=== PATIENT | female | born 1960 | race Caucasian/White ===

== ENCOUNTER 2017-07-18 18:40 | Inpatient (IN) | payer MEDICARE ==
[~2017-07-18] VITALS: Ht 154.9 cm; Wt 75.7 kg
--- NOTE | ~2017-07-18 | HP ---
PATIENT'S NAME: KONRAD BORJAS [facility] AGE: 56 Y [address] ROOM: [place] [id number] LOCATION: [facility] ADMIT DATE: 07/18/2017 History & Physical DISCHARGE DATE: FAMILY PHYSICIAN: PHYSICIAN, UNKNOWN ATTENDING PHYSICIAN: COLBY BUSTILLO DATE OF SERVICE: ADDENDUM: PHYSICAL EXAMINATION: VITAL SIGNS: All the vitals were reviewed and were unremarkable. GENERAL: No acute distress. Alert and oriented x3. HEAD: Atraumatic, normocephalic. EYES: Nonicteric. No pallor. OROPHARYNX: Moist mucous membranes. CARDIOVASCULAR: S1, S2. No murmurs, gallops, or rubs. LUNGS: Clear to auscultation bilaterally. ABDOMEN: Soft, nontender, and nondistended. Bowel sounds present. EXTREMITIES: No clubbing, cyanosis, or edema. MUSCULOSKELETAL: Multiple joint deformities noted. SKIN: Right wrist dorsal site wound noted which has been there chronically. Some purulence noted. ENDOCRINE: No thyromegaly or myxedema noted. LYMPHATICS: No lymphangitis or lymphadenopathy noted. LABORATORY DATA: The lab work from outside facility was reviewed and was impressive for potassium of 3.5. ASSESSMENT: 1. Rheumatoid arthritis. 2. Chronic right hand surgical wound infection. 3. Narcotic dependence. 4. Chronic use of steroids. 5. Acute L3 fracture. PLAN: We are going to admit this lady, monitor her overnight. There were some concerns for compression given her numbness as well as incontinence. Per Dr. Mendez's advice, we got an MRI overnight which did not reveal any cord compression. Dr. Day to see the patient in the morning from Orthopedics. We will continue all her home medications for now. N.p.o. at midnight. PATIENT'S NAME: KONRAD BORJAS [facility] AGE: 56 Y [address] ROOM: [id number] [place] [id number] LOCATION: [facility] ADMIT DATE: 07/18/2017 History & Physical DISCHARGE DATE: FAMILY PHYSICIAN: PHYSICIAN, UNKNOWN ATTENDING PHYSICIAN: COLBY BUSTILLO MD PHONG HENDRICKS/modl /[id number] D: T: [id number] HISTORY & PHYSICAL
--- NOTE | ~2017-07-18 | CON ---
PATIENT'S NAME: KONRAD BORJAS [facility] AGE: 56 Y [address] ROOM: [id number] [place], [place] [address] LOCATION: [facility] ADMIT DATE: 07/18/2017 Consultation DISCHARGE DATE: FAMILY PHYSICIAN: PHYSICIAN, UNKNOWN ATTENDING PHYSICIAN: COLBY BUSTILLO DATE OF CONSULTATION: 07/19/2017 REFERRING PHYSICIAN: Ronal Alberto MD TIME: 7:30 a.m. HISTORY OF PRESENT ILLNESS: Ms. Borjas is a 56-year-old white female with a long history of rheumatoid arthritis, on steroids. Known to have severe osteoporosis. Also, on chronic narcotics for pain. She has had one week of new pain in the back. Found to have a lumbar 3 burst fracture. Prior to the onset of back symptoms, was having fractures of the pelvis and the sacrum. Those symptoms began in April. She had been in a detention and was slowly mobilizing. After the onset of the pelvic symptoms, was having some difficulty of urination, but no weakness in the lower extremities. No new changes in bowel or bladder function related to the onset of back symptoms. Not known to have cancer. Does have a chronic infection of the right hand after attempted surgery. PAST MEDICAL HISTORY: Rheumatoid arthritis, on steroids. Chronic pain, on narcotics. Also, has hypertension. Known to have severe osteoporosis. Does not smoke. Does not drink alcohol. Does not abuse drugs. MEDICATIONS: See list, which includes steroids. ALLERGIES: MORPHINE AND SULFA. 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 FAMILY MEDICAL HISTORY: Positive for rheumatoid arthritis. PERSONAL AND SOCIAL HISTORY: She has been in a detention, but would like to eventually return to home. PHYSICAL EXAMINATION: PATIENT'S NAME: KONRAD BORJAS [facility] AGE: 56 Y [address] ROOM: [id number] [place], [place] [address] LOCATION: [facility] ADMIT DATE: 07/18/2017 Consultation DISCHARGE DATE: FAMILY PHYSICIAN: PHYSICIAN, UNKNOWN ATTENDING PHYSICIAN: COLBY BUSTILLO GENERAL: A white female, in minimal distress. HEENT: No vision on the left, can see on the right. Hears. Cushingoid appearance to the facies. NECK: Nontender. Moves without pain. BACK: Lumbosacral spine is tender. Thoracic Spine: No deformity, nontender. Pelvis: Tender over the sacrum. NEUROLOGIC: Feels sensation in the torso and both lower extremities. Moves legs with full strength. Normal tone. Distal pulses palpable. HEART: Pulse rate is regular. LUNGS: Able to take in a deep breath. ABDOMEN: Soft and nontender. LABORATORY AND DIAGNOSTIC DATA: CT scan of the low back shows a L3 burst fracture with minimal retropulsion and minimal loss of height. There is also fracture of bilateral sacral ala and a transverse fracture through the body of sacral 2. MRI of the lumbosacral spine shows no significant stenosis with the burst fracture. Also, no evidence of diskitis, other infection, or metastatic tumor. Laboratories: Serum protein electrophoresis is pending. Sedimentation rate is 22. C-reactive protein is less than 0.29. UA: Unremarkable. Blood Count: White blood count 7.8, hemoglobin is 12.1. ASSESSMENT AND PLAN: An unfortunate lady with severe rheumatoid arthritis requiring steroids, and osteoporosis. She has a pathologic fracture of lumbar 3 that is acute. Treatment is conservative, mobilizing in a TLSO. Not a candidate for vertebral body augmentation. Also, has fractures of the sacrum which is part of the spine and also the right ilium. We will plan to mobilize in the TLSO as tolerates. Urinary symptoms most likely from the previous sacral fracture. I would not recommend any other treatment at this time. Certainly, she is osteoporotic, on steroids, and likely to have additional fractures in the future. Avoiding falls is important. RONAL ALBERTO MD DPM/larry /[id number] d: 07/20/17 1423 t: 07/22/17 1735, CONSULTATION REPORT
--- NOTE | ~2017-07-18 | HP ---
PATIENT'S NAME: [facility]AD [facility] AGE: 56 Y [address] ROOM: [place] [address] LOCATION: [facility] ADMIT DATE: 07/18/2017 History & Physical DISCHARGE DATE: FAMILY PHYSICIAN: PHYSICIAN, UNKNOWN ATTENDING PHYSICIAN: COLBY BUSTILLO DATE OF SERVICE: CHIEF COMPLAINT: Back pain. HISTORY OF PRESENT ILLNESS: A 56-year-old lady with a lifelong rheumatoid arthritis started since she was age of 14, opioid dependence, and hypertension, who presented to the emergency department over at [facility] with acute onset of back pain, which started actually Friday without any traumatic event, progressive in nature, sharp in character, present all the time, aggravated by movement, radiates to the both legs as well, associated with numbness as well as urinary incontinence, but no saddle anesthesia reported. Further inquiry also reviewed that she had a surgery on her right wrist for joint repair, which has not been successful and has been chronically infected and has been taken care by the Infectious Disease people. She did not report any chest pain, any shortness of breath, any cough or sputum production, headache, dizziness, abdominal pain, or burning on urination. REVIEW OF SYSTEMS: All other systems reviewed and were negative except what is mentioned in the HPI. ALLERGIES: THE PATIENT DID HAVE ADVERSE REACTION TO MORPHINE AND SULFA. PAST MEDICAL HISTORY: Rheumatoid arthritis, surgery of the hand which is chronically infected right side. Hypertension and chronic narcotic dependence. MEDICATIONS: Being reconciled right now. FAMILY HISTORY: Family history is strongly positive for rheumatoid arthritis on the mother side. SOCIAL HISTORY: Never a smoker. No alcohol or drug abuse. PATIENT'S NAME: KONRAD BORJAS [facility] AGE: 56 Y [address] [id number] [id number] LOCATION: [facility] ADMIT DATE: 07/18/2017 History & Physical DISCHARGE DATE: FAMILY PHYSICIAN: PHYSICIAN, UNKNOWN ATTENDING PHYSICIAN: COLBY BUSTILLO DICTATION ENDS HERE MD PHONG HENDRICKS/larry /[id number] D: T: [id number] HISTORY & PHYSICAL
--- NOTE | ~2017-07-18 | DS ---
PATIENT'S NAME: KONRAD BORJAS [facility] AGE: 56 Y [address] ROOM: [id number] [place], [place] [address] LOCATION: [facility] ADMIT DATE: 07/18/2017 Discharge Summary DISCHARGE DATE: 07/22/2017 FAMILY PHYSICIAN: Physician, Unknown ATTENDING PHYSICIAN: Prakash Vargas PRINCIPAL DIAGNOSES: 1. L3 burst fracture with S2 sacral fracture. 2. [id number] pain. 3. Severe rheumatoid arthritis, on chronic steroid therapy. 4. Chronic constipation. 5. Physical deconditioning. 6. Essential hypertension. 7. Chronic obstructive pulmonary disease. 8. Chronic right hand infection. 9. History of a corneal transplant. HOSPITAL COURSE: Please reference any admitting data to the history and physical as dictated by admitting physician, Dr. Kwabena Guerrier. Ms. Borjas is a 56-year-old female, who comes with a known lumbar 3 fracture with sensory deficit. She was admitted under the Intensive Care and evaluated in consultation with our orthopedic surgeon, Dr. Day. Imaging revealed no cord compression and did confirm a burst fracture at L3 vertebral body with mild compression deformity. There was also noted posterior bone displacement at L3. A fracture at the superior endplate S2 with impaction and slight bone displacement and right and left-sided sacral insufficiency fractures were noted. On exam, she could feel both legs having positive sensory and motor skills. She was placed in a TLSO brace and started on physical therapy. She was also started on DVT prophylaxis, Lovenox. AP lateral views of the lumbar spine were used for a comparison, which showed stable and normal alignment. We went ahead and continued pain management with her current home medicines, which adequately controlled her pain. She was able to stand and move some, however, not well enough to return to home safely, so Care Management consultation was obtained for custodial placement. While this was being arranged, the patient did receive physical therapy and did make little progress. Pain was adequately controlled. We did evaluate worsening of her left hip pain by x-ray, which did not show any new or acute abnormalities. She also experienced abdominal discomfort and a KUB abdomen showed considerable constipation, so started on an aggressive bowel regimen, which relieved this. The brace did not appear to be fitted well either, which could have been contributing factors, so this was refitted with [employer] and custom fit for her on day of discharge. She did also come to us with a Askew catheter for some retention and this was PATIENT'S NAME: KONRAD BORJAS [facility] AGE: 56 Y [address] ROOM: [id number] [place], [place] [address] LOCATION: [facility] ADMIT DATE: 07/18/2017 Discharge Summary DISCHARGE DATE: 07/22/2017 FAMILY PHYSICIAN: Physician, Unknown ATTENDING PHYSICIAN: Prakash Vargas removed at the time of discharge. RADIOLOGIC IMAGING: As described above. CONSULTING PROVIDERS: Ronal Day MD, Orthopedic Spine. LABORATORY FINDINGS: CBC on 07/21 showed a white blood cell count of 8.9, hemoglobin of 12.4, hematocrit of 37.2, and a platelet count of 322. Chemistry panel showed a glucose 89, BUN 10, creatinine 0.7, sodium 142, potassium 3.7, chloride 109, CO2 of 23, calcium 8.7, AST was 34, ALT of 30, alk phos was 214, and total bilirubin of 0.4. LDH was 250. Sedimentation rate was 22. CRP was less than 0.29. TSH was 0.252. Urinalysis was positive for 25 leukocytes, negative nitrites, 30 protein. Microanalysis showed 25 blood, 5-10 white blood cells, few bacteria. A culture was not obtained in the lab. The patient stated she was asymptomatic. DISCHARGE MEDICATIONS: 1. Doxycycline 50 mg p.o. everyday. 2. Cymbalta 60 mg p.o. everyday. 3. Lovenox 40 mg subcutaneous everyday. 4. Plaquenil 200 mg p.o. everyday. 5. Ibuprofen 800 mg p.o. 3 times daily as needed. 6. Cozaar 50 mg p.o. everyday. 7. Methadone one tablet p.o. four times daily. 8. Hydrocodone/acetaminophen 10/325 mg 1-2 tablets p.o. every 6 hours as needed. 9. Metoclopramide 5 mg p.o. four times daily. 10. Singulair 10 mg p.o. every night at bedtime. 11. Potassium chloride 20 mEq p.o. twice daily. 12. Prednisone 5 mg p.o. everyday. 13. Lyrica 150 mg p.o. twice daily. 14. Zanaflex 4 mg p.o. three times daily. 15. Breo Ellipta 200/25 mcg 2 puffs inhalation everyday. 16. Albuterol/ProAir one puff every 2 hours as needed for shortness of breath or wheezing. 17. Dexilant 60 mg one capsule p.o. everyday. 18. Vitamin D2 81913 units one capsule p.o. twice a week. 19. Lunesta one tablet p.o. every night at bedtime as needed. 20. Valtrex 1 g p.o. everyday. 21. Colace 100 mg p.o. twice daily. 22. MiraLax 17 g p.o. everyday schedule. 23. Dulcolax suppository one per rectum daily as needed for constipation. 24. Durezol eyedrops one drop to left eye everyday. PATIENT'S NAME: KONRAD BORJAS [facility] AGE: 56 Y [address] ROOM: [place] [address] LOCATION: [facility] ADMIT DATE: 07/18/2017 Discharge Summary DISCHARGE DATE: 07/22/2017 FAMILY PHYSICIAN: Physician, Unknown ATTENDING PHYSICIAN: Prakash Vargas DISCHARGE INSTRUCTIONS: 1. The patient will be transferred to [facility] under the care of her primary care doctor, Dr. Jair Fitzgerald, who she will need to require follow up in the next 1-2 weeks with. At that followup, she should obtain a CBC and a BMP for further evaluation. 2. Diet should remain regular. 3. Weightbearing is as tolerated with occupational and physical therapy to evaluate and treat the patient as indicated and the TLSO should be on. The patient when out of bed. 4. Wound care to the right hand wounds with Allevyn foam dressing to be changed on Mondays and . She should continue her doxycycline as prescribed by her primary care doctor and Infectious Disease with appropriate followup as previously scheduled with them. 5. As significant as her osteoporosis is, we recommend that she continue her osteoporotic treatment as an outpatient with her primary care provider. May consider Forteo as an option but to be further discussed as an outpatient. 6. Rehab potential is fair. Discharge potential is fair. The patient is well aware of her condition and prognosis and above line of management was discussed with her in depth prior to discharge. She stated complete understanding of all the above as well as all of her questions were answered with statements of satisfaction. Total time arranging greater than 30 minutes. ADDENDUM: Dr. Day requests follow up with him on August 25, 2017 at 1:00 p.m. with an x-ray at [facility] that day at noon of the standing lumbar spine in her TLSO AP and lateral view as well as her pelvis and sacrum. These appointments were established before her discharge. Thank you for allowing us to participate in the care of this patient while at [facility]. MAICO I MICHELLE RIGGS APRN FOR MD LIDA PERRY/modl /[id number] CC: MD Jair Gil MD d: t: 07/23/17 1306, DISCHARGE SUMMARY
[2017-07-18] MEDS ORDERED: BREO ELLIPTA 21 EACH INH (21:38)
[2017-07-18] MEDS ORDERED: CYMBALTA60 MG PO (21:39)
[2017-07-18] MEDS ORDERED: DEXILANT60 MG PO (21:41)
[2017-07-18] MEDS ORDERED: DOXYCYCLINE100 MG PO (21:43)
[2017-07-18] MEDS ORDERED: VITAMIN D250000 UNIT PO (21:44)
[2017-07-18] MEDS ORDERED: PLAQUENIL200 MG PO (21:44)
[2017-07-18] MEDS ORDERED: IBUPROFEN800 MG PO (21:45)
[2017-07-18] MEDS ORDERED: COZAAR50 MG PO (21:45)
[2017-07-18] MEDS ORDERED: LUNESTA3 MG PO (21:46)
[2017-07-18] MEDS ORDERED: DOLOPHINE10 MG PO (21:47)
[2017-07-18] MEDS ORDERED: METOCLOPRAMIDE H5 MG PO (21:48)
[2017-07-18] MEDS ORDERED: NORCO 10-325 T1 EACH PO (21:49)
[2017-07-18] MEDS ORDERED: KCL - MICRO-K10 MEQ PO (21:50)
[2017-07-18] MEDS ORDERED: DELTASONE5 MG PO (21:52)
[2017-07-18] MEDS ORDERED: PROAIR HFA8.5 GM (21:55)
[2017-07-18] MEDS ORDERED: SINGULAIR10 MG PO (21:55)
[2017-07-18] MEDS ORDERED: ZANAFLEX4 MG PO (21:56)
[2017-07-18] MEDS ORDERED: VALTREX1000 MG PO (21:56)
[2017-07-18] MEDS ORDERED: LYRICA 150MG C150 MG PO (22:05)
[2017-07-18 22:21] LABS: BASOPHIL % 0.5 %; EOSINOPHIL % 0.5 %; HEMATOCRIT 35.4 % (33.0-46.0); HEMOGLOBIN 12.1 g/dL (10.0-15.0); IMMATURE GRANULOCYTE # 0.2 K/uL (0.0-0.3); IMMATURE GRANULOCYTE % 2.4 %; LYMPHOCYTE # 1.3 K/uL (0.8-4.0); LYMPHOCYTE % 16.8 %; MCH 38.7 pg (27.0-34.0); MCHC 34.2 gm/dL (32.0-36.5); MCV 113.1 fl (83.0-98.0); MONOCYTE # 0.6 K/uL (0.0-1.0); MONOCYTE % 7.3 %; MPV 9.4 fl (9.4-12.4); NEUTROPHIL # (ANC) 5.7 K/uL (1.8-7.8); NEUTROPHIL % 72.5 %; NRBC % 0 /100WBC (0-0.00); PLATELET COUNT 296 K/uL (150-450); RBC 3.13 M/uL (3.50-5.50); RDW-CV 13.6 % (11.9-14.6); WBC 7.8 K/uL (4.0-11.0)
[2017-07-18 22:39] LABS: ANION GAP 12.5 (10.0-19.0); BLOOD UREA NITROGEN 10 mg/dL (6-24); CALCIUM 8.7 mg/dL (8.5-10.5); CHLORIDE 112 mMol/L (96-110); CO2 20 mMol/L (22-32); CREATININE 0.7 mg/dL (0.5-1.1); POTASSIUM 3.5 mMol/L (3.7-5.1); SODIUM 141 mMol/L (135-145)
[2017-07-19 12:07] LABS: BILIRUBIN URINE NEGATIVE (NEGATIVE); BLOOD URINE 25 /UL (NEGATIVE); COLOR URINE YELLOW (YELLOW); GLUCOSE URINE NEGATIVE (NEGATIVE); KETONE URINE NEGATIVE (NEGATIVE); LEUKOCYTES URINE 25 /UL (NEGATIVE); NITRITE URINE NEGATIVE (NEGATIVE); PROTEIN URINE 30 mg/dL (NEGATIVE); SPEC GRAVITY URINE 1.015 (1.003-1.035); TURBIDITY URINE CLEAR (CLEAR); UROBILINOGEN URINE NORMAL (NORMAL)
[2017-07-19 12:21] LABS: AMORPHOUS URINE 1+ (NEGATIVE); BACTERIA URINE FEW (NEGATIVE); HYALINE CAST URINE 0-2 #/LPF (NEGATIVE); MUCUS URINE 2+ (NEGATIVE)
[2017-07-21 05:59] LABS: BASOPHIL % 0.5 %; EOSINOPHIL # 0.2 K/uL (0.0-0.5); EOSINOPHIL % 2.1 %; HEMATOCRIT 37.2 % (33.0-46.0); HEMOGLOBIN 12.4 g/dL (10.0-15.0); IMMATURE GRANULOCYTE # 0.2 K/uL (0.0-0.3); IMMATURE GRANULOCYTE % 2.6 %; LYMPHOCYTE # 1.5 K/uL (0.8-4.0); LYMPHOCYTE % 17.1 %; MCH 37.9 pg (27.0-34.0); MCHC 33.3 gm/dL (32.0-36.5); MCV 113.8 fl (83.0-98.0); MONOCYTE # 0.9 K/uL (0.0-1.0); MONOCYTE % 10.5 %; MPV 9.3 fl (9.4-12.4); NEUTROPHIL % 67.2 %; NRBC % 0 /100WBC (0-0.00); PLATELET COUNT 322 K/uL (150-450); RBC 3.27 M/uL (3.50-5.50); RDW-CV 13.7 % (11.9-14.6); WBC 8.9 K/uL (4.0-11.0)
[2017-07-21 06:21] LABS: ALBUMIN 3.1 gm/dL (3.5-5.0); ALK PHOS 214 IU/L (33-138); ALT 30 IU/L (12-78); ANION GAP 13.7 (10.0-19.0); AST 34 IU/L (10-40); BLOOD UREA NITROGEN 10 mg/dL (6-24); CALCIUM 8.7 mg/dL (8.5-10.5); CHLORIDE 109 mMol/L (96-110); CO2 23 mMol/L (22-32); CREATININE 0.7 mg/dL (0.5-1.1); POTASSIUM 3.7 mMol/L (3.7-5.1); SODIUM 142 mMol/L (135-145); TOTAL BILIRUBIN 0.4 mg/dL (0.0-1.5); TOTAL PROTEIN 6.3 g/dL (6.0-8.4)
[2017-07-21] MEDS ORDERED: DUREZOL5 ML (11:30)
== END 2017-07-22 12:30 | DRG 552 ==
LOC: GICU 20:15
PROVIDERS: Family Medicine; Internal Medicine; ADMIT Internal Medicine
DX: S32.031A Stable burst fracture of third lumbar vertebra, initial encounter for closed fracture (principal); F11.20 Opioid dependence, uncomplicated; S32.10XA Unspecified fracture of sacrum, initial encounter for closed fracture; M80.08XA Age-related osteoporosis with current pathological fracture, vertebra(e), initial encounter for fracture; N39.0 Urinary tract infection, site not specified; E87.6 Hypokalemia; I10 Essential (primary) hypertension; M06.9 Rheumatoid arthritis, unspecified; K59.09 Other constipation; J44.9 Chronic obstructive pulmonary disease, unspecified
CPT/HCPCS: G0008; G0009; J1650; J2270; J2405; J7512

== ENCOUNTER → 2017-07-22 | Outpatient (CLI) | payer MEDICARE ==
[~2017-07-22] MED LIST: BREO ELLIPTA 21 EACH INH; COZAAR50 MG PO; CYMBALTA60 MG PO; DELTASONE5 MG PO; DEXILANT60 MG PO; DOLOPHINE10 MG PO; DOXYCYCLINE100 MG PO; DUREZOL5 ML; IBUPROFEN800 MG PO; KCL - MICRO-K10 MEQ PO; LUNESTA3 MG PO; LYRICA 150MG C150 MG PO; METOCLOPRAMIDE H5 MG PO; NORCO 10-325 T1 EACH PO; PLAQUENIL200 MG PO; PROAIR HFA8.5 GM; SINGULAIR10 MG PO; VALTREX1000 MG PO; VITAMIN D250000 UNIT PO; ZANAFLEX4 MG PO
== END | disposition disaster alternative care site (69) ==
LOC: GAMB 11:48
DX: S39.92XA Unspecified injury of lower back, initial encounter (principal); M54.5 Low back pain; I10 Essential (primary) hypertension; J44.9 Chronic obstructive pulmonary disease, unspecified; M19.90 Unspecified osteoarthritis, unspecified site; X58.XXXA Exposure to other specified factors, initial encounter; Z79.2 Long term (current) use of antibiotics; Z79.899 Other long term (current) drug therapy; Z87.81 Personal history of (healed) traumatic fracture